=== PATIENT | male | born 1955 | race Caucasian/White ===

== ENCOUNTER → 2017-12-02 06:24 | Outpatient (CLI) | payer OTHER ==
[~2017-12-02 06:24] MED LIST: ATORVASTATIN CA10 MG PO; LOSARTAN POTAS100 MG PO; NORVASC5 MG PO; ULORIC40 MG PO
== END | disposition home or self-care (01) ==
LOC: LAB 06:24
DX: C81.2 Mixed cellularity Hodgkin lymphoma (principal); C81.23 Mixed cellularity Hodgkin lymphoma, intra-abdominal lymph nodes; D63.1 Anemia in chronic kidney disease; N18.2 Chronic kidney disease, stage 2 (mild); I10 Essential (primary) hypertension; M1A.09X0 Idiopathic chronic gout, multiple sites, without tophus (tophi); D50.8 Other iron deficiency anemias; D51.8 Other vitamin B12 deficiency anemias; R97.0 Elevated carcinoembryonic antigen [CEA]; R97.8 Other abnormal tumor markers; D55.0 Anemia due to glucose-6-phosphate dehydrogenase [G6PD] deficiency; D51.1 Vitamin B12 deficiency anemia due to selective vitamin B12 malabsorption with proteinuria; D51.0 Vitamin B12 deficiency anemia due to intrinsic factor deficiency; Z12.11 Encounter for screening for malignant neoplasm of colon; Z85.72 Personal history of non-Hodgkin lymphomas; N42.89 Other specified disorders of prostate